=== PATIENT | female | born 1990 | race Hispanic/Latino ===

== ENCOUNTER 2022-12-27 20:43 | Emergency (ER) | payer BC ==
[~2022-12-27] VITALS: Ht 167.6 cm; Wt 74.8 kg
[2022-12-27 21:28] LABS: APPEARANCE,URINE TURBID (CLEAR); BILIRUBIN,URINE NEGATIVE (NEGATIVE); COLOR,URINE LIGHT-ORANGE (YELLOW); GLUCOSE, URINE (UA) 50 mg/dL (NEGATIVE); KETONES,URINE NEGATIVE (NEGATIVE); LEUKOCYTE ESTERASE ,URINE 500 Leu/uL (NEGATIVE); NITRATE,URINE NEGATIVE (NEGATIVE); OCCULT BLOOD,URINE LARGE (NEGATIVE); PROTEIN,URINE 100 mg/dL (NEGATIVE)
[2022-12-27 21:29] LABS: HCG,QUALITATIVE URINE NEGATIVE (NEGATIVE)
[2022-12-27] MEDS ORDERED: 0.9%NACL 1000ML 1,000 ML IV ONE (21:30)
[2022-12-27 21:33] LABS: BACTERIA,URINE MOD /HPF (None Seen); MUCUS,URINE FEW LPF (None Seen); RBC,URINE TNTC /HPF (0-1); WBC,URINE TNTC /HPF (0-1)
[2022-12-27 21:51] LABS: BASOPHILS % (AUTO) 0.6 % (0.0-5.0); EOSINOPHILS % (AUTO) 1.5 % (0.0-8.0); HEMATOCRIT 37.9 % (36-48); MEAN CORPUSCULAR HEMOGLOBIN 27.1 pg (27.0-33.0); MEAN CORPUSCULAR HGB CONC 32.2 g/dL (32.0-36.0); MONOCYTES % (AUTO) 5.4 % (3.0-13.0); NEUTROPHILS % (AUTO) 65.2 % (40.0-77.0); PLATELET COUNT (AUTO) 352 K/uL (130-400); RED BLOOD CELL COUNT(AUTO) 4.51 MIL/uL (4.00-5.50); RED CELL DISTRIBUTION WIDTH 13.4 % (11.0-15.5); WHITE BLOOD COUNT (AUTO) 14.9 K/uL (4.8-10.8)
[2022-12-27 22:03] LABS: CREATININE 0.6 mg/dL (0.5-1.5); POTASSIUM 3.7 mmol/L (3.5-5.1)
[2022-12-27 23:00] VITALS: BP 119/75
[2022-12-27] MEDS ORDERED: CEFTRIAXONE 1G VIAL IVPB ONE (23:00)
[2022-12-27] MEDS ORDERED: PHENAZOPYRIDINE HCL 200 MG TABLET ONE (23:27)
[2022-12-27] MEDS ORDERED: PHENAZOPYRIDINE HCL 200 MG TABLET PO ONE (23:30)
[2022-12-27] MEDS ORDERED: PHEN-847 PO (23:37)
[2022-12-27] MEDS ORDERED: CEPH500B PO (23:37)
[2022-12-28] MEDS ORDERED: TAMS-1 PO (17:34)
== END 2022-12-27 23:46 | disposition home or self-care (01) ==
LOC: EDH 20:43
DX: N39.0 Urinary tract infection, site not specified (principal); N20.0 Calculus of kidney; E11.9 Type 2 diabetes mellitus without complications; M79.7 Fibromyalgia
CPT/HCPCS: 99284; 96374; 76770; 96361; 80053; 85025; 87077; 87088; 87186; 81001; 81025; 36415; J7030; J0696

== ENCOUNTER 2022-12-28 15:39 | Emergency (ER) | payer BC ==
[~2022-12-28] VITALS: Ht 167.6 cm; Wt 74.4 kg
[~2022-12-28 15:39] MED LIST: CEPH500B PO; PHEN-847 PO
[2022-12-28] MEDS ORDERED: TAMS-1 PO (17:34)
[2022-12-28] MEDS ORDERED: KETOROLAC 30MG VIAL (30MG/ML) IM ONE (18:00)
[2022-12-28] MEDS ORDERED: TAMSULOSIN HCL 0.4 MG CAP.ER.24H PO ONE (18:00)
[2022-12-28 18:36] VITALS: BP 121/62
== END 2022-12-28 18:52 | disposition home or self-care (01) ==
LOC: EDH 15:39
DX: N20.0 Calculus of kidney (principal); E11.9 Type 2 diabetes mellitus without complications; M79.7 Fibromyalgia
CPT/HCPCS: 99284; 96372; J1885

== ENCOUNTER 2023-02-28 18:10 | Emergency (ER) | payer BC ==
[~2023-02-28] VITALS: Ht 167.6 cm; Wt 72.6 kg
[~2023-02-28 18:10] MED LIST changes: +TAMS-1 PO
[2023-02-28 18:12] VITALS: BP 141/86; PULSE 80; RESP 16
== END 2023-02-28 23:31 | disposition left against medical advice (07) ==
LOC: EDH 18:10
DX: R68.89 Other general symptoms and signs (principal); Z53.21 Procedure and treatment not carried out due to patient leaving prior to being seen by health care provider

== ENCOUNTER 2023-06-22 13:58 | Emergency (ER) | payer BC ==
[~2023-06-22] VITALS: Ht 167.6 cm; Wt 73.5 kg
[2023-06-22 16:06] LABS: BASOPHILS # (AUTO) 0.06 K/uL (0.00-0.20); BASOPHILS % (AUTO) 0.5 % (0.0-5.0); EOSINOPHILS # (AUTO) 0.12 K/uL (0.00-0.70); HEMATOCRIT 37.8 % (36-48); IMMATURE GRANULOCYTE ABSOLUTE 0.04 K/uL (0-1); LYMPHOCYTES % (AUTO) 24.8 % (21.0-51.0); MEAN CORPUSCULAR HEMOGLOBIN 26.8 pg (27.0-33.0); MEAN CORPUSCULAR HGB CONC 33.3 g/dL (32.0-36.0); MEAN CORPUSCULAR VOLUME 80.4 fL (79-99); MONOCYTES # (AUTO) 0.5 K/uL (0.1-1.0); MONOCYTES % (AUTO) 3.9 % (3.0-13.0); NEUTROPHILS # (AUTO) 8.5 K/uL (1.8-7.7); NEUTROPHILS % (AUTO) 69.5 % (40.0-77.0); PLATELET COUNT (AUTO) 420 K/uL (130-400); RED CELL DISTRIBUTION WIDTH 13.4 % (11.0-15.5); WHITE BLOOD COUNT (AUTO) 12.2 K/uL (4.8-10.8)
[2023-06-22 16:18] LABS: CREATININE 0.6 mg/dL (0.5-1.5); POTASSIUM 3.4 mmol/L (3.5-5.1)
[2023-06-22 16:44] LABS: ALBUMIN 3.8 g/dL (3.5-5.0); BILIRUBIN,TOTAL 0.3 mg/dL (0.2-1.0); TOTAL PROTEIN, SERUM 8.2 g/dL (6.0-8.3)
[2023-06-22 16:53] LABS: ADD UA MICROSCOPIC YES; APPEARANCE,URINE CLEAR (CLEAR); BILIRUBIN,URINE NEGATIVE (NEGATIVE); COLOR,URINE YELLOW (YELLOW); GLUCOSE, URINE (UA) NEGATIVE (NEGATIVE); KETONES,URINE 5 mg/dL (NEGATIVE); LEUKOCYTE ESTERASE ,URINE NEGATIVE Leu/uL (NEGATIVE); NITRATE,URINE NEGATIVE (NEGATIVE); OCCULT BLOOD,URINE NEGATIVE (NEGATIVE); PH,URINE 5.5 (5.0-8.0); PROTEIN,URINE 20 mg/dL (NEGATIVE); UROBILINOGEN,URINE 0.2 mg/dL (0.2-1.0)
[2023-06-22 16:58] LABS: MUCUS,URINE MANY LPF (None Seen); RBC,URINE 0-1 /HPF (0-1); SQUAMOUS EPITHELIAL CELL,UR RARE /HPF (0-2); WBC,URINE 0-1 /HPF (0-1)
[2023-06-22] MEDS ORDERED: POTASSIUM BICARB/CIT AC 25 MEQ TABLET.EFF PO ONE (17:30)
[2023-06-22] MEDS ORDERED: 0.9%NACL 1000ML 1,000 ML IV ONE (17:30)
[2023-06-22] MEDS ORDERED: METOCLOPRAMIDE 10 MG/2 ML VIAL IVP ONE (19:00)
[2023-06-22 19:48] VITALS: BP 126/71; PULSE 84; RESP 16; O2SAT 97
== END 2023-06-22 20:06 | disposition home or self-care (01) ==
LOC: EDH 13:58
DX: O26.892 Other specified pregnancy related conditions, second trimester (principal); R42 Dizziness and giddiness; E87.6 Hypokalemia; E11.9 Type 2 diabetes mellitus without complications; M79.7 Fibromyalgia
CPT/HCPCS: 99284; 96374; 76801; 96361; 80053; 84702; 85025; 82948; 81001; 36415; 93005; J2765

== ENCOUNTER 2023-11-15 14:22 | Observation (INO) | payer BC ==
[~2023-11-15] VITALS: Ht 167.6 cm; Wt 75.7 kg
[2023-11-15] MEDS ORDERED: LACTATED RINGERS 1000ML 1,000 ML IV SCH (14:30)
[2023-11-15] MEDS: LACTATED RINGERS 1000ML 1,000 ML IV ONE ×2 (15:10→16:14)
[2023-11-15 15:37] LABS: APPEARANCE,URINE CLEAR (CLEAR); BILIRUBIN,URINE NEGATIVE (NEGATIVE); COLOR,URINE LIGHT-YELLOW (YELLOW); GLUCOSE, URINE (UA) 30 mg/dL (NEGATIVE); KETONES,URINE NEGATIVE (NEGATIVE); LEUKOCYTE ESTERASE ,URINE 75 Leu/uL (NEGATIVE); NITRATE,URINE NEGATIVE (NEGATIVE); OCCULT BLOOD,URINE NEGATIVE (NEGATIVE); PH,URINE 5.5 (5.0-8.0); PROTEIN,URINE NEGATIVE (NEGATIVE); UROBILINOGEN,URINE 0.2 mg/dL (0.2-1.0)
[2023-11-15 15:45] LABS: ADD UA MICROSCOPIC YES
[2023-11-15 15:47] LABS: MUCUS,URINE RARE LPF (None Seen); SQUAMOUS EPITHELIAL CELL,UR FEW /HPF (0-2)
== END 2023-11-15 16:54 | disposition home or self-care (01) ==
LOC: LDH 14:22
PROVIDERS: ADMIT Obstetrics & Gynecology; ATTEND Obstetrics & Gynecology
DX: O24.419 Gestational diabetes mellitus in pregnancy, unspecified control (principal); O26.893 Other specified pregnancy related conditions, third trimester; R10.9 Unspecified abdominal pain; R19.7 Diarrhea, unspecified; Z3A.34 34 weeks gestation of pregnancy
CPT/HCPCS: 96361; 96360; 87088; 82948; 81001; G0378 ×2; G0379; J7120 ×2

== ENCOUNTER 2025-01-10 09:02 | Emergency (ER) | payer BC ==
[~2025-01-10] VITALS: Ht 167.6 cm; Wt 77.1 kg
[~2025-01-10 09:02] MED LIST changes: -CEPH500B PO; +DOCU-116 PO; +IBUP-2077 PO; -PHEN-847 PO; -TAMS-1 PO
--- NOTE | 2025-01-10 09:39 | ERN ---
General Chief Complaint: Multiple Complaints Stated Complaint: THROAT PAIN, RUNNY NOSE, HEADACHE, NAUSEA Time Seen by MD: 09:04 History of Present Illness Initial Comments 34F, hx fibromyalgia, presents for sore throat, fatigue, headache, fever, and cough for a few hours. has same symptoms. Allergies: Coded Allergies: No Known Allergies (Unverified Allergy, Unknown, 12/27/22) Home Meds Reported Medications Docusate Sodium (Colace) 100 Mg Capsule, 100 MG PO BID, #60 CAP 12/14/23 Ibuprofen (Ibuprofen 800 mg Tab) 800 Mg Tab, 800 MG PO Q8H PRN for PAIN, #60 TAB 12/14/23 Past Medical History Past Medical History: Diabetes-Type II, Fibromyalgia Past Surgical History: Other Surgical History Other: D & C X 3 Female( History) : 4 Para: 0 Aborts: 3 ROS Dictation CONSTITUTIONAL: fatigue, chills, dizzy HEAD/FACE: No signs of trauma. EENT: sore throat RESPIRATORY: No cough, no orthopnea, no SOB, no stridor, no wheezing. CARDIOVASCULAR: No chest pain, no edema, no palpitations, no syncope. GASTROINTESTINAL/ABDOMINAL: No abdominal pain, no constipation, no diarrhea, no nausea, no vomiting. GENITOURINARY: No abnormal discharge, no dysuria, no frequent urination, no hematuria. No complaints of pain in the genitals. MUSCULOSKELETAL: No back pain, no gout, no joint pain, no joint swelling, no muscle pain, no muscle stiffness, no neck pain. INTEGUMENTARY: No change in color, no change in hair/nails, no dryness, no lesion, no lumps, no rash. NEUROLOGICAL/PSYCH: No anxiety, not depressed, no emotional problem, no headache, no numbness, no pre-existing deficit, no history of seizures, no tremors, no weakness. HEMATOLOGIC/LYMPHATIC: Not anemic, no history of blood clots, no apparent bleeding, no bruising, glands not swollen. All Systems Negative, Except as Noted. Physical Exam Physical Exam Dictation VITAL SIGNS: Reviewed. GENERAL APPEARANCE: Alert, oriented x3, no acute distress, obese. HEAD AND FACE: Non-traumatic. EYES: PERRL, pink conjunctivas, eyelid no trauma, anterior chamber clear. EARS: Pinnas intact and no signs of trauma or erythema. Ear canals clear and no discharge. TMs no erythema. NOSE: No discharge, no bleeding. OROPHARYNX: Mouth normal, teeth no caries, tongue pink. Pharynx clear, no erythema. Tonsils no exudates, no abscesses noted. Mucous membrane moist. NECK: Supple, non-tender, no thyromegaly, no masses, no JVD, no bruits. BREAST: Deferred. CHEST: No tenderness, no crepitus, no paradoxical movement, no retractions. LUNGS: Clear, well-ventilated, symmetric, no rales, no wheezing, no rhonchi, no stridor, good breath sounds bilaterally. HEART: Regular rate, regular rhythm, no murmur, no gallops. VASCULAR: No peripheral edema. ABDOMEN: Soft, positive bowel sounds, nondistended, no guarding, nontender, no rebound, no masses no hepatomegaly, no splenomegaly, no Nino's sign, no hernias. RECTAL: Deferred. GENITAL: Deferred. NEUROLOGICAL: Normal speech, gross motor function intact, gross sensory function intact. MUSCULOSKELETAL: Neck nontender, full range of motion, back nontender, full range of motion. EXTREMITIES: Nontender, full range of motion. SKIN: Color pink, dry, no turgor, no rash, no lacerations, no abrasions, no contusions. LYMPHATICS: Deferred. MDM CC: viral URI symptoms Historian: patient Comorbidities: fibromyalgia Limitations: none Ddx: viral URI, dehydration. No labs or imaging indicated. Patient's symptoms are consistent with viral URI. Spouse has already been worked up who has same symptoms. Patient received IVF and toradol in ED. ED Course Orders Procedure Category Date Status Time Lactated Ringers PHA 01/10/25 Complete 1000ml (Lactated 09:30 Ketorolac PHA 01/10/25 Complete Tromethamine 15mg/Ml 09:30 Acetaminophen 500mg PHA 01/10/25 Complete Tab (Tylenol 500mg T 09:30 Current Medications Medications (Trade) Dose Ordered Sig/Kwasi Route PRN Reason Start Time Stop Time Status Last Admin Dose Admin Acetaminophen (TYLenol 500MG TAB) 1,000 mg ONCE ONCE PO 01/10/25 09:30 01/10/25 09:31 DC 01/10/25 10:28 Ketorolac Tromethamine (toRADol) 15 mg ONCE ONCE IV 01/10/25 09:30 01/10/25 09:31 DC 01/10/25 10:29 Lactated Ringer's 1,000 ml @ 0 mls/hr ONCE ONCE IV 01/10/25 09:30 01/10/25 09:31 DC 01/10/25 10:27 Vital Signs Date Time Temp Pulse Resp B/P (MAP) Pulse Ox O2 Delivery O2 Flow Rate FiO2 01/10/25 11:00 98.1 66 16 122/75 99 Room Air* 0 21 01/10/25 10:28 98.2 01/10/25 09:03 98.2 72 14 126/85 97 Room Air 0 DX & DISP Disposition: Discharge Departure Impression: Primary Impression: Upper respiratory infection Condition: Stable Additional Instructions: Your symptoms are consistent with a viral upper respiratory infection. Alternate Tylenol and ibuprofen as needed. Drink plenty of liquids. Follow up with the primary doctor. Referrals: RUY FULTON (PCP) JUANJOSE JUDD DO January 10, 2025 09:39
[2025-01-10] MEDS: LACTATED RINGERS 1000ML 1,000 ML IV ONE (10:27)
[2025-01-10] MEDS: acetaMINOPHEN 500 MG TABLET PO ONE (10:28)
[2025-01-10] MEDS: ketOROlac 15MG/ML VIAL (15MG/ML) IV ONE (10:29)
[2025-01-10 11:28] VITALS: TEMP 97.7
[2025-01-10 12:34] VITALS: BP 119/73; PULSE 56; RESP 16; TEMP 97.7; O2SAT 100
--- NOTE | 2025-01-10 12:37 | NUR ---
DC PATIENT WAS DC'D BY DR JUDD TODAY, I DC'D PATIENTS IV WITH CATH STILL IN PLACE AND APPLIED 2X2 GAUZE WITH COBAN I EXPLAINED TO PATIENT TO FOLLOW UP WITH PCP, PROVIDED INFO BASED ON DIAGNOSIS, AND ANSWERED ANY FURTHER QUESTIONS PATIENT AMBULATED OUT OF ED, ACCOMPANIED BY , NO COMPLICATIONS
== END 2025-01-10 12:31 | disposition home or self-care (01) ==
LOC: EDH 09:02
DX: J06.9 Acute upper respiratory infection, unspecified (principal); B97.89 Other viral agents as the cause of diseases classified elsewhere; E11.9 Type 2 diabetes mellitus without complications; M79.7 Fibromyalgia
CPT/HCPCS: 99284; 96374; 96361; J1885; J7120